=== PATIENT | male | born 1970 | race Caucasian/White ===

== ENCOUNTER → 2016-06-11 | Outpatient (CLI) | payer SELFPAY ==
[~2016-06-11] MED LIST: IMODIUM A-D2 MG PO; PRILOSEC 20MG20 MG PO
== END ==
LOC: COL.LAB 06-10 11:19
DX: Z53.9 Procedure and treatment not carried out, unspecified reason (principal)

== ENCOUNTER → 2019-05-28 | Outpatient (CLI) | payer SELFPAY | LOC: COL.RAD 16:01 | DX: M79.642 Pain in left hand (principal); M79.641 Pain in right hand; M79.671 Pain in right foot ==